=== PATIENT | female | born 1970 | race Caucasian/White ===

== ENCOUNTER 2017-12-08 09:38 | Inpatient (IN) | payer BC ==
[~2017-12-08] VITALS: Ht 157.5 cm; Wt 106.6 kg
[~2017-12-08 09:38] MED LIST: AZELASTINE137 MCG/0. NS; COLACE100 MG PO; HYDROCODON-ACE1 EAC7 PO; NASACORT10.8 ML NS; OMEPRAZOLE20 M1 PO; QVAR8.7 G1 IH; VALTREX 500 MG500 M1 PO; ZYRTEC10 MG PO
[2017-12-08 09:49] VITALS: BP 146/102
[2017-12-08] MEDS ORDERED: EX-LAX15 M1 PO (09:55)
[2017-12-08] MEDS ORDERED: SYNTHROID50 MCG PO (09:55)
[2017-12-08 10:26] LABS: HEMATOCRIT 44.7 % (37.0-47.0); HEMOGLOBIN 15.3 gm/dL (12.0-15.0); MCH 32.7 pg (26.0-34.0); MCHC 34.2 g/dL (28.0-37.0); MCV 95.6 fL (80.0-100.0); MPV 9.2 fl. (7.2-11.1); NUCLEATED RBCS 0 /100WBC; PLATELET COUNT* 402 thou/uL (150-400); RBC 4.68 mil/uL (4.20-5.00); RDW-CV 13.3 % (10.5-14.5); WBC 12.4 thou/uL (4.0-11.0)
[2017-12-08 10:34] LABS: URINE BILIRUBIN NEGATIVE (Negative); URINE BLOOD TRACE (Negative); URINE CLARITY CLEAR; URINE COLOR YELLOW; URINE GLUCOSE-RANDOM NEGATIVE (Negative); URINE KETONES 1+ (Negative); URINE LEUKOCYTES-REFLEX NEGATIVE (Negative); URINE NITRITE-REFLEX NEGATIVE (Negative); URINE PROTEIN 1+ (Negative); URINE UROBILINOGEN 0.2 E.U./dl (0.2-1.0)
[2017-12-08 10:35] LABS: ANION GAP 11 mmol/L (7-16); BUN 11 mg/dL (7-18); CALCIUM 9.5 mg/dL (8.5-10.1); CHLORIDE 101 mmol/L (98-107); CO2 26 mmol/L (21-32); GLUCOSE 132 mg/dL (70-99); SODIUM 138 mmol/L (136-145)
[2017-12-08 10:40] LABS: CASTS None Seen /LPF (None Seen); CRYSTALS None Seen /LPF (None Seen); MUCUS None Seen strn/LPF (None Seen); SQUAMOUS 4-10 Moderate /LPF (0-3); URINE RBC 3-10 Few /HPF (0-2); URINE WBC-REFLEX 0-5 Rare /HPF (0-5)
[2017-12-08 10:42] LABS: ALBUMIN 3.5 g/dL (3.4-5.0); ALKALINE PHOSPHATASE 71 U/L (46-116); LIPASE 91 U/L (73-393); POTASSIUM 4.7 mmol/L (3.5-5.1); SGOT 33 U/L (15-37); SGPT 20 U/L (30-65); TOTAL PROTEIN 8.3 g/dL (6.4-8.2); TROPONIN-I LEVEL <0.06 ng/mL (<0.06)
[2017-12-08 11:01] LABS: ABSOLUTE MONOCYTES 0.5 thou/uL (0.0-1.2); ABSOLUTE NEUTROPHILS 10.9 thou/uL (1.6-8.1); PLATELET ESTIMATE ADEQUATE
[2017-12-08 14:04] VITALS: BP 131/57
[2017-12-08 17:45] VITALS: BP 129/78
[2017-12-08 23:39] VITALS: BP 122/67
[2017-12-09 04:00] VITALS: BP 106/59
[2017-12-09 07:45] VITALS: BP 140/62
[2017-12-09 09:02] LABS: ABSOLUTE BASOPHILS 0.1 thou/uL (0.0-0.2); ABSOLUTE LYMPHOCYTES 1.3 thou/uL (0.8-5.3); ABSOLUTE MONOCYTES 0.9 thou/uL (0.0-1.2); ABSOLUTE NEUTROPHILS 8.6 thou/uL (1.6-8.1); BASOPHILS 0.5 %; EOSINOPHILS 0.2 %; HEMATOCRIT 36.3 % (37.0-47.0); MCH 32.7 pg (26.0-34.0); MCHC 33.8 g/dL (28.0-37.0); MCV 96.8 fL (80.0-100.0); MONOCYTES 8.6 %; MPV 9.2 fl. (7.2-11.1); NUCLEATED RBCS 0 /100WBC; POLYS 78.7 %; RBC 3.75 mil/uL (4.20-5.00); RDW-CV 13.3 % (10.5-14.5); WBC 10.9 thou/uL (4.0-11.0)
[2017-12-09 09:07] LABS: HEMOGLOBIN 12.3 gm/dL (12.0-15.0); PLATELET COUNT* 297 thou/uL (150-400)
[2017-12-09 09:15] LABS: CREATININE 0.9 mg/dL (0.6-1.3); POTASSIUM 3.9 mmol/L (3.5-5.1)
[2017-12-09 16:00] VITALS: BP 128/69
[2017-12-09 22:36] VITALS: BP 161/77
[2017-12-10 07:45] VITALS: BP 126/76
[2017-12-10] MEDS ORDERED: HYDROCODON-ACE1 EAC7 PO (14:17)
[2017-12-10 14:18] VITALS: BP 126/76
[2017-12-10 16:00] VITALS: BP 111/72
[2017-12-11 00:08] VITALS: BP 123/67
[2017-12-11 08:15] VITALS: BP 121/41
--- NOTE | 2017-12-12 14:57 | S ---
[facility] [address] [place] [address] SURGICAL PATH RPT PROCEDURE Name: TIANA BARNETT Room: [address] IN [facility].#: [id number] Admission: 12/08/17 Date of : 74 Discharge: 12/11/17 Report #: [id number] Path Case #: [id number] PATHOLOGY REPORT COLLECTION DATE: 12/08/2017 RECEIVED DATE: 12/08/2017 SUBMITTING PHYS: Dr. Cristina Calderón OTHER PHYS: Dr. Obed Wong SPECIMEN(S) RECEIVED: A.Small bowel B.Hernia sac * * * * * * * * * * * * FINAL DIAGNOSIS: A. Small bowel: - Segment of benign small intestine with segmental, transmural fresh hemorrhage and edema, and acute serositis. B. Hernia sac: - Benign fibromembranous/fibrofatty tissue with mild chronic inflammation and fibrosis. (TREY:malachi; 12/12/2017) PATHOLOGIST: Amadeo Gill M.D. REPORT ELECTRONICALLY SIGNED BY: Amadeo Gill M.D. DATE/TIME: 12/12/2017 14:57 * * * * * * * * * * * * GROSS PATHOLOGY: A. Received in formalin labeled "Tiana Barnett, small bowel," is an unoriented segment of small bowel measuring 17.0 cm in length by 1.8 cm in diameter. Both margins are stapled closed. There is a minimal amount of attached mesenteric fat measuring up to 2.0 cm in thickness. The serosal surface is dark macedo to dusky kay in appearance, with a central area of circumferential dark brown discoloration measuring 4.3 cm in length and clearing one stapled margin by 5.3 cm and clearing the opposite stapled margin by 7.0 cm. The specimen is opened along the antimesenteric line to reveal a light macedo to kay-macedo mucosa displaying normal architectural folds, with the mucosa underlying the serosal discoloration, dark macedo-brown in appearance and demarcated from the surrounding mucosa. Also revealed upon opening is an area of dark brown discoloration between the serosal discoloration and underlying mucosa, grossly resembling intramural hemorrhage. No distinct nodules or lesions are noted grossly. Sectioning through the attached mesenteric fat reveals no grossly identifiable lymph nodes. [place] [address] SURGICAL PATH RPT PROCEDURE Name: TIANA BARNETT Room: [address] IN [facility]#: [id number] Admission: 12/08/17 Date of : 74 Discharge: 12/11/17 Report #: [id number] Path Case #: [id number] representatively as follows: A1 Both margins A2 Full-thickness transverse section through area of possible intramural hemorrhage A3 Mesenteric margin above possible intramural hemorrhage A4 Normal small bowel mucosa B. Received in formalin labeled "Tiana Anibal, hernia sac," is a segment of pale macedo to dusky kay soft tissue with attached fibroadipose tissue measuring 4.3 x 2.2 x 1.1 cm. No nodules or lesions are identified. Canal Superintendent tissue is submitted in cassette B1. ([facility]; 12/11/2017) CLINICAL HISTORY: Pre-op DX: Possible small bowel obstruction, incarcerated hernia Post-op BX: Ventral hernia, strangulated abdominal hernia INITIAL CPT CODE(S): A; 36303 B; 88832 Professional services performed by [facility] at [facility], [address] [place], [place] [address], [place] [id number]. Technical services performed by [employer] at [address] [place] [address], [address], [place] [address]. [facility] [address] [place] [address] PHONE: [phone] DIRECTOR: Rd Echevarria M.D. * * * END OF REPORT * * *
--- NOTE | 2017-12-13 09:21 | OP ---
[address] [address] OPERATIVE REPORT Name: KATIETIANA Madeleine Room: [address] IN M.R.#: [id number] Admission: 12/08/17 Attend Phys: Obed Chun DO Discharge: 12/11/17 Date of : 74 Report #: [id number] THIS REPORT FOR: //name// CC: Obed Chun Otd [facility] DICTATED BY: Jayla Alejandra DO DATE OF SERVICE: 12/08/2017 PREOPERATIVE DIAGNOSIS: Incarcerated ventral hernia. POSTOPERATIVE DIAGNOSIS: Strangulated ventral hernia. SURGEON: Jayla Alejandra DO, PGY5 SUPERVISING SURGEON: Cristina Calderón. PROCEDURE: Primary repair of strangulated ventral hernia with small bowel resection. ANESTHESIA: General endotracheal. ESTIMATED BLOOD LOSS: 30 mL. SPECIMENS: Small bowel and hernia sac. COMPLICATIONS: None. DISPOSITION: PACU to floor. OPERATIVE DETAILS: After obtaining proper informed consent, the patient was brought to the operating room and laid supine on the operating table. She was given preoperative antibiotics and sedated and intubated under the benefit of general anesthesia. Abdomen was then prepped and draped in the usual sterile fashion and timeout was performed. An incision was made overlying the palpable hernia defect and dissection of subcutaneous tissue was carried out surrounding the hernia sac. Hernia sac was then opened and small bowel was identified. It was quite erythematous and edematous with some serosal tears concerning for compromise. Hernia sac was dissected free from fascia and we did open the fascia ____ further in order to alleviate the pressure on the small bowel mesentery. This was brought further out of the abdomen. We then waited several minutes to evaluate the small bowel; however, it did appear compromised to the point where we elected to do a small bowel resection. Proximal and distal margins were identified and hemostat was placed in the mesentery. Proximal and distal edges of the small bowel were ligated with EMILI 60 [place] [address] OPERATIVE REPORT Name: TIANA WILSON Room: [address]#: [id number] Admission: 12/08/17 Attend Phys: Obed Chun, Discharge: 12/11/17 Date of : 74 Report #: [id number] Mesentery was then serially clamped and ligated with hemostats and 2-0 silk ties. One segment of small bowel was completely resected, it was sent to pathology for further evaluation. 3-0 silk sutures were placed to bring together the antimesenteric borders of the two ends of small bowel. Xhis-ma-tszu anastomosis was then created in standard stapled fashion and common enterotomy was closed with TA 60 stapler. Staple line was oversewn with 3-0 Vicryl with good hemostasis. Anastomosis was then placed back in the abdomen. Fascia was reapproximated with #1 running 0 PDS with good approximation. Local infiltration of 0.5% Marcaine was injected into the fascia as well as the subcutaneous tissue, totalling 30 mL. Subcutaneous tissues were reapproximated in layered fashion with deep 3-0 Vicryl suture and skin was closed with 4-0 Monocryl followed by Dermabond. All counts were correct at the end of the case. Drapes were removed and the patient was awoken and extubated and brought to PACU in good condition for further recovery. Abdominal binder was applied. Dr. Cristina Calderón was present and scrubbed for the entire procedure. <ELECTRONICALLY SIGNED> By: Cristina Calderón MD 12/13/17 0921 0919 [id number] Parviz Calderón MD /nt
[2018-02-14] MEDS ORDERED: QVAR REDIHALE10.6 G1 INH (13:04)
[2018-02-14] MEDS ORDERED: ZYRTEC10 M2 PO (13:05)
[2018-02-14] MEDS ORDERED: ACYCLOVIR 400400 MG PO (13:06)
== END 2017-12-11 11:40 | disposition home or self-care (01) | DRG 330 ==
LOC: M.ERS 09:38 → M.TBA-ER 12:13 → M.3W 12:13
PROVIDERS: Physician Assistant; ADMIT Surgery
PROC: 0WQF4ZZ Repair Abdominal Wall, Percutaneous Endoscopic Approach (ICD-10-PCS; principal; 2017-12-08)
PROC: 0DT84ZZ Resection of Small Intestine, Percutaneous Endoscopic Approach (ICD-10-PCS; principal; 2017-12-08)
DX: K43.6 Other and unspecified ventral hernia with obstruction, without gangrene (principal); K56.609 Unspecified intestinal obstruction, unspecified as to partial versus complete obstruction; R65.10 Systemic inflammatory response syndrome (SIRS) of non-infectious origin without acute organ dysfunction; J45.909 Unspecified asthma, uncomplicated; Z79.899 Other long term (current) drug therapy; Z90.49 Acquired absence of other specified parts of digestive tract

== ENCOUNTER 2018-02-20 12:13 | Observation (INO) | payer BC ==
[~2018-02-20] VITALS: Ht 157.5 cm; Wt 106.6 kg
--- NOTE | ~2018-02-20 | H ---
[address] [address] HISTORY AND PHYSICAL Name: TIANA WILSON Room: [address] Arm[place] Garcia#: [id number] Admission: 02/20/18 Attend Phys: Cristina Calderón MD Discharge: 02/21/18 Date of : 74 Report #: [id number] THIS REPORT FOR: //name// Please refer to the History and Physical performed in the physician's office. By: [id number] Records Staff BHANU /CARRIE
--- NOTE | ~2018-02-20 | H ---
[address] [address] HISTORY AND PHYSICAL Name: TIANA WILSON Room: [address] Arm[place] Garcia#: [id number] Admission: 02/20/18 Attend Phys: Cristina Calderón MD Discharge: 02/21/18 Date of : 74 Report #: [id number] THIS REPORT FOR: //name// For History and Physical please refer to the handwritten note in the patient's medical record. By: [facility]6Medical Records Staff BHANU /CARRIE
[~2018-02-20 12:13] MED LIST changes: +ACYCLOVIR 400400 MG PO; +EX-LAX15 M1 PO; +QVAR REDIHALE10.6 G1 INH; +SYNTHROID50 MCG PO; +ZYRTEC10 M2 PO
[2018-02-20 19:07] VITALS: BP 153/81
[2018-02-20 23:45] VITALS: BP 122/72
[2018-02-21 04:00] VITALS: BP 106/52
[2018-02-21 04:08] LABS: HEMATOCRIT 37.2 % (37.0-47.0); HEMOGLOBIN 12.5 gm/dL (12.0-15.0); MCH 31.9 pg (26.0-34.0); MCHC 33.6 g/dL (28.0-37.0); MCV 95.1 fL (80.0-100.0); MPV 8.8 fl. (7.2-11.1); RBC 3.91 mil/uL (4.20-5.00); RDW-CV 12.2 % (10.5-14.5)
[2018-02-21 04:12] LABS: CALCIUM 8.2 mg/dL (8.5-10.1); CREATININE 0.7 mg/dL (0.6-1.3)
[2018-02-21 11:07] VITALS: BP 91/44
[2018-02-21 11:37] VITALS: BP 91/44
[2018-02-21] MEDS ORDERED: NORCO 5-325 TA1 EACH PO (11:45)
[2018-02-21 11:49] VITALS: BP 91/44
[2018-02-21 12:13] VITALS: BP 91/44
--- NOTE | 2018-03-08 20:47 | OP ---
[facility] [address] [place] [address] OPERATIVE REPORT Name: TIANA WILSON Room: [address] Arm[place] Garcia#: [id number] Admission: 02/20/18 Attend Phys: Cristina Calderón MD Discharge: 02/21/18 Date of : 74 Report #: [id number] THIS REPORT FOR: //name// CC: Cristina Wong DATE OF SERVICE: 02/20/2018 PREOPERATIVE DIAGNOSIS: Ventral hernia. POSTOPERATIVE DIAGNOSIS: Ventral hernia. PROCEDURE: Laparoscopic ventral hernia repair with mesh. SURGEON: Cristina Calderón M.D. AGRICULTURE SPECIALIST: Gerardo Rodriguez DO. ESTIMATED BLOOD LOSS: 30 mL. COMPLICATIONS: None. MESH: Ventrio ST 8 cm circular patch. DESCRIPTION OF PROCEDURE: Full informed consent obtained preoperatively. Full discussion of risks, benefits and alternatives, and questions answered. The patient understood risk of bleeding, infection, reoperation, injury to surrounding structures, hernia recurrence, mesh complications, conversion to open and catastrophic complications up to . She understood and wished to proceed. She was taken to the operating room, prepped and draped in sterile fashion, began with a 5 mm incision in left upper quadrant and used Optiview technique and attempted to get in. I was unable to visualize layers well and therefore made a supraumbilical open Lisa site and hernia was palpable. I was able to enter through this area, placed a 12 port and additional 5 mm ports were placed. The bowel and omentum were lysed with sharp dissection from the midline laparoscopically. Next, we evaluated the mesh. The hernia size was approximately 5 x 5 cm. I used a 0 Vicryl and Ric-Gege to close this with good approximation of the fascia. Next, I selected the 8 x 8 cm hernia mesh, combination of 0 Prolene and 0 Ethibond was used to anchor through the mesh, it was pulled up using Ric-Gege on multiple locations with secure adherence to the fascia, shiny smooth side was down towards the bowel. I desufflated and inspected. There was no evidence of any ongoing bleeding. I removed my trocars. There was no bleeding from these areas. I desufflated the gas from the abdomen. 4-0 Monocryl was used [place] [address] OPERATIVE REPORT Name: KATIETIANA Madeleine [address] [id number] Admission: 02/20/18 Attend Phys: Cristina Calderón MD Discharge: 02/21/18 Date of : 74 Report #: [id number] applied. Sponge, needle, instrument counts were correct. The patient tolerated well. <ELECTRONICALLY SIGNED> By: Cristina Calderón MD 03/08/18 2047 1641 1705Danicole Calderón MD /oswald
== END 2018-02-21 12:20 | disposition home or self-care (01) ==
LOC: M.SUR 12:13 → M.TBA-ER 18:08 → M.3W 18:08
PROVIDERS: ADMIT Surgery
DX: K43.9 Ventral hernia without obstruction or gangrene (principal); I10 Essential (primary) hypertension; J45.909 Unspecified asthma, uncomplicated; E03.9 Hypothyroidism, unspecified; K56.609 Unspecified intestinal obstruction, unspecified as to partial versus complete obstruction

== ENCOUNTER → 2019-02-04 | Day surgery (SDC) | payer BC ==
[~2019-02-04] MED LIST changes: +NORCO 5-325 TA1 EACH PO
--- NOTE | 2019-02-04 16:20 | OP ---
[address] [address] OPERATIVE REPORT Name: TIANA WILSON Room: [address] Armida MNataly#: [id number] Admission: 02/04/19 Attend Phys: Obed Chun DO Discharge: Date of : 74 Report #: [id number] THIS REPORT FOR: //name// CC: Obed Wong DATE OF SERVICE: 02/04/2019 REFERRING PHYSICIAN: Tod Wong MD. PREOPERATIVE DIAGNOSIS: Recurrent ventral hernia. POSTOPERATIVE DIAGNOSIS: Recurrent ventral hernia. PROCEDURE: Da Klaudia robotic-assisted laparoscopic recurrent ventral hernia repair with mesh and lysis of adhesions and removal of old mesh. SURGEON: Obed Chun DO. TRANSPORTATION ASSISTANT: Dany Gunn DO, PGY3, resident. ANESTHESIA: General endotracheal. ESTIMATED BLOOD LOSS: 30 mL. COMPLICATIONS: None. DESCRIPTION OF PROCEDURE: After obtaining proper consents and discussing risks and complications with the patient, she was taken to the operating room and laid on the supine position, administered general anesthesia. She was then prepped and draped in the usual sterile fashion. Timeout was performed. We confirmed the appropriate patient and procedure. Preoperative antibiotics had been given. SCDs were in place. All necessary equipment was within the operating room. I then made a small right subcostal incision through the patient's previous incision. This was carried down through the skin into the subcutaneous tissue using electrocautery for hemostasis. We then used a 12 mm Visiport to enter the abdominal cavity. Once the peritoneum was entered, insufflation was begun. Once insufflation was complete, full visual inspection of the anterior abdominal organs was performed. This revealed adhesions to the old mesh. These adhesions appeared to be both omentum and small bowel. We could also visualize a suture material that appeared to have torn away from one side of the mesh that was repaired by a different surgeon previously. At this point, I placed two more trocars, a da Klaudia camera port was placed in the far right flank and a long da Klaudia 8-mm port was placed in the right lower quadrant. I then docked the da Klaudia robot. We inserted a laparoscopic monopolar scissors [place] [address] OPERATIVE REPORT Name: TIANA WILSON [address]#: [id number] Admission: 02/04/19 Attend Phys: Obed Chun DO Discharge: Date of : 74 Report #: [id number] quadrant port and a bipolar fenestrated grasper in the right upper quadrant. I then broke scrub and went on console. Once on console, I was able to visualize the entire area and began taking down the adhesions to the mesh starting with the omental adhesions. These were taken down using blunt dissection as well as electrocautery. Once we identified some bowel, it actually appeared to be an area where the patient had a previous resection. This area was bluntly and sharply dissected using laparoscopic scissors assuring no injury to the bowel. Once the bowel and the omental adhesions were taken down, which took approximately 45 minutes, I then visualized the old mesh, and it appeared that the left lateral side of the entire mesh had pulled away, and the hernia defect was still present. The total lysis of adhesions took approximately 45 minutes, and then, we were able to visualize the old mesh, which appeared to have pulled away from the entire left side of the previous hernia defect. The defect was also wide open, so at this point, I felt that in order to close the defect, it would be best to remove the old mesh. This was done using electrocautery as well as sharp dissection. There were about 4 stay sutures, which were cut and removed and then the cautery again was used to remove the entire piece of the old mesh. This was then laid down in the abdominal cavity on top of the omentum for removal at a later time. At this point, I measured the defect which measured approximately 7 cm long x about 2.5 cm wide. I elected to close the defect using a running 2-0 V-Loc absorbable suture, incorporating the hernia sac into the closure. Once the entire defect was closed, I then chose a 10.2 x 15.2 cm Ventralight mesh using the echo positioning system. This mesh was then inserted and held up against the abdominal wall. The echo positioning system was used. I then sewed the mesh in place circumferentially using 2-0 V-Loc absorbable suture to cover the entire hernia defect. Once the entire mesh was sutured in place, the echo positioning system was removed and then brought out through the 12 mm right upper quadrant incision. I then removed all of the needles as well, and we then undocked the da Klaudia robot and then removed the 12 mm right upper quadrant trocar. This trocar site was closed using a PMI closure device and 0 Vicryl suture. We then removed the remaining trocars. All of the skin incisions were then closed using 4-0 Monocryl subcuticular stitches. The wounds were injected with 0.5% Marcaine without epinephrine. Sterile dressings were placed and an abdominal binder was placed. The patient was then awakened in the operating room and transported to recovery room in stable condition. Sponge, needle, instrument counts were all correct x 3 at the end of the procedure. <ELECTRONICALLY SIGNED> By: Obed Chun DO 02/04/19 1620 1150 [id number] Chun DO /nt
== END | disposition home or self-care (01) ==
LOC: M.SUR 06:18 → M.TBA 14:22 → M.SUR 14:22
DX: K43.2 Incisional hernia without obstruction or gangrene (principal); K66.0 Peritoneal adhesions (postprocedural) (postinfection); J45.909 Unspecified asthma, uncomplicated; Z98.890 Other specified postprocedural states; Z79.899 Other long term (current) drug therapy; Z79.891 Long term (current) use of opiate analgesic; Z87.19 Personal history of other diseases of the digestive system; Z90.49 Acquired absence of other specified parts of digestive tract

== ENCOUNTER → 2021-05-26 | Outpatient (CLI) | payer OTHER | LOC: M.ULTRA 16:00 | PROVIDERS: ATTEND Internal Medicine | DX: N10 Acute pyelonephritis (principal); R10.9 Unspecified abdominal pain; Z84.1 Family history of disorders of kidney and ureter ==